=== PATIENT | male | born 1985 | race Caucasian/White ===

== ENCOUNTER 2023-02-10 17:33 | Emergency (ER) | payer OTHER, SELFPAY ==
[2023-02-10 17:55] VITALS: BP 135/90; PULSE 114; RESP 18; TEMP 36.3; O2SAT 98
[2023-02-10] MEDS: TETANUS,DIPHTHERIA,AC PERTUSSIS ADULT (0.5 ML) BOOSTRIX IM (18:15)
--- NOTE | 2023-02-10 18:16 | ED.WOUNDLAC ---
HPI - Wound/Laceration General Chief Complaint: Wound/Laceration Stated Complaint: Unspecified Time Seen by Provider: 02/10/23 17:49 Source: patient Mode of arrival: ambulatory Limitations: no limitations History of Present Illness HPI narrative: This is a 37-year-old male that presents to the emergency department for a laceration to his right leg sustained just prior to arrival. 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 He cut his leg on the fence. He does not believe he is up to date on his tetanus vaccination which prompted him to be seen. Related Data Allergies Allergy/AdvReac Type Severity Reaction Status Date / Time No Known Allergies Allergy Verified 02/10/23 18:16 Review of Systems Review of Systems: CONSTITUTIONAL: Denies fever SKIN: Reports laceration All systems reviewed & are unremarkable except as noted in HPI and below PMFSH Past Medical History Medical History (Updated 02/10/23 @ 18:18 by Karlie Lorenzo PA-C) No active medical problems Social History Social History (Updated 02/10/23 @ 18:18 by Karlie Lorenzo PA-C) Smoking status: Never smoker Exam Narrative: GENERAL: Well-appearing, well-nourished, and in no acute distress. HEAD: Normocephalic, atraumatic. EYES: EOMI. EXTREMITIES: Normal range of motion. No edema. Right lower leg with 1.5 cm linear superficial abrasion, no active bleeding SKIN: Warm, dry, no rash. NEURO: No focal deficits. Alert and oriented x3. PSYCH: Normal mood and affect Course Vital Signs Vital signs: Vital Signs Temperature 97.4 F L 02/10/23 17:55 Pulse Rate 114 H 02/10/23 17:55 Respiratory Rate 18 02/10/23 17:55 Blood Pressure 135/90 02/10/23 17:55 Pulse Oximetry 98 02/10/23 17:55 Oxygen Delivery Room Air 02/10/23 17:55 Temperature 97.4 F L 02/10/23 17:55 Pulse Rate 114 H 02/10/23 17:55 Respiratory Rate 18 02/10/23 17:55 Blood Pressure 135/90 02/10/23 17:55 Pulse Oximetry 98 02/10/23 17:55 Oxygen Delivery Room Air 02/10/23 17:55 Procedures Laceration Laceration 1: Date: 02/10/23 Time: 18:20 Site: lower extremity Side (If applicable): right Size (cm): 1.5 Description: linear Pre-repair: irrigated ====== Skin Level ====== ====== Subcutaneous Layer ====== ====== Muscle Layer ====== ====== Tendon Layer ====== Dressing: Wound cleansed and covered with antibiotic ointment and a Band-Aid MDM - Wound/Laceration MDM Narrative Medical decision making narrative: Patient presents to the emergency department for an abrasion to his right leg sustained via a fence. Unsure of tetanus vaccination. He was updated. The wound was cleansed and covered with antibiotic ointment and a Band-Aid. He did not require any suturing. He was educated on further wound care. He is to follow-up with his primary provider if needed. He was given warnings to return to the ER Critical Care Time Critical Care Time Critical Care Time: No Discharge Plan Discharge Clinical Impression: Abrasion Patient Disposition: Home, Self-Care Condition: Stable Instructions: Abrasion (ED) Additional Instructions: Return to the emergency department if you experience fever, redness or swelling of your wound, abnormal drainage from your wound, or any other symptoms that are concerning to you. Apply antibiotic ointment daily. Do not soak the wound. Clean with mild soap and water daily Follow-up with your primary care doctor for wound check if needed Follow-up/Referrals: PHYSICIAN NOT ON STAFF,NONSTAFF [Primary Care Provider] -
== END 2023-02-10 18:40 | disposition home or self-care (01) ==
PROVIDERS: Emergency Provider Physician Assistant
DX: S80.811A Abrasion, right lower leg, initial encounter (principal); Z23 Encounter for immunization; R00.0 Tachycardia, unspecified; W26.8XXA Contact with other sharp object(s), not elsewhere classified, initial encounter
CPT/HCPCS: 90471; 90715; 99282